=== PATIENT | male | born 1995 | race Caucasian/White ===

== ENCOUNTER 2017-04-25 14:26 | Emergency (ER) | payer BC ==
--- NOTE | 2017-04-25 15:38 | CT ---
Head CT Technique: Multiple axial sections through the brain were obtained. Intravenous contrast was not utilized. Comparison: No previous intracranial imaging. Findings: Ventricles along with basal cisterns and sulci over the convexities are within normal limits for the patient's age. No abnormal parenchymal densities are seen. No evidence of intracranial hemorrhage. No midline shift or mass effect is seen. Bone window settings were reviewed which shows no acute calvarial abnormality. Visualized sinuses are clear. Impression: 1. No acute intracranial abnormality is identified. Diagnostic code #1
--- NOTE | 2017-04-25 16:23 | EDM.PDOC ---
ED HPI GENERAL MEDICAL PROBLEM - General Chief Complaint: General Stated Complaint: DIZZY, SYNCOPE, BLOODY NOSE Time Seen by Provider: 04/25/17 14:34 Source of Information: Reports: Patient History Limitations: Reports: No Limitations - History of Present Illness INITIAL COMMENTS - FREE TEXT/NARRATIVE: The patient presents with a headache and syncopy. The patient got up to get ready for weight lifting a few days ago. He then got lightheaded and passed out. He hit his head when he fell. He has a headache since then. He denies neck pain. He has no chest pain or shortness of breath. He has no abdominal pain, nausea or vomiting. He has no numbness or weakness. He has no blurred vision or double vision. He has no medical problems. He has been having nose bleeds for a few weeks. He has a history of nose bleeds in the winter but not this much. He denies trauma to his nose. He has never passed out before. He has been eating and drinking okay and he has been getting enough rest. He also tells me he has some low back pain. This started the last 3 weeks of football. It comes and goes and he did go to a chiropractor. That did not help much. He has no bowel or bladder problems. He has no family history of hear problems. Onset: Sudden Duration: Day(s): (4) Quality: Reports: Ache Severity: Moderate Improves with: Reports: None Worsens with: Reports: None Context: Reports: Activity (He just got up to ) Associated Symptoms: Reports: Headaches. Denies: Confusion, Chest Pain, Cough, Fever/Chills, Nausea/Vomiting, Shortness of Breath head Pain Score (Numeric/FACES): 1 back Pain Score (Numeric/FACES): 5 - Related Data Allergies Allergy/AdvReac Type Severity Reaction Status Date / Time No Known Allergies Allergy Verified 04/25/17 14:36 Home Meds: Home Meds Cyclobenzaprine [Flexeril] 10 mg PO TID PRN #20 tab 04/25/17 [Rx] Methylphenidate [Ritalin LA] 30 mg PO DAILY 04/25/17 [History] Multivitamin [One Daily] 1 each PO DAILY 04/25/17 [History] Past Medical History - Past Health History Medical/Surgical History: Denies Medical/Surgical History Musculoskeletal History: Reports: Other (See Below) Other Musculoskeletal History: tendon repair to finger Psychiatric History: Reports: ADHD Social & Family History - Family History Family Medical History: Noncontributory - Tobacco Use Smoking Status *Q: Never Smoker Second Hand Smoke Exposure: No - Caffeine Use Caffeine Use: Reports: Coffee - Recreational Drug Use Recreational Drug Use: No ED ROS GENERAL - Review of Systems Review Of Systems: See Below Constitutional: Reports: No Symptoms HEENT: Reports: No Symptoms Respiratory: Reports: No Symptoms Cardiovascular: Reports: Syncope Endocrine: Reports: No Symptoms GI/Abdominal: Reports: No Symptoms : Reports: No Symptoms Musculoskeletal: Reports: Back Pain (Lower) Skin: Reports: No Symptoms Neurological: Reports: Headache ED EXAM, GENERAL - Physical Exam Exam: See Below Exam Limited By: No Limitations General Appearance: Alert, No Apparent Distress Ears: Normal External Exam Nose: Normal Inspection Head: Atraumatic, Normocephalic Neck: Normal Inspection Respiratory/Chest: No Respiratory Distress, Lungs Clear, Normal Breath Sounds Cardiovascular: Regular Rate, Rhythm, No Edema, No Murmur GI/Abdominal: Soft, Non-Tender, No Organomegaly, No Mass Back Exam: Other (Pain upon palpation to the mid low back) EKG INTERPRETATION EKG Date: 04/25/17 Time: 15:12 Rhythm: NSR Rate (Beats/Min): 63 [place]: Normal P-Wave: Present QRS: Normal ST-T: Normal QT: Normal Course - Vital Signs Last Recorded V/S: Last Vital Signs Temp 97.7 F 04/25/17 14:32 Pulse 65 04/25/17 14:32 Resp 18 04/25/17 14:32 BP 147/73 H 04/25/17 14:32 Pulse Ox 98 04/25/17 14:32 - Orders/Labs/Meds Orders: Active Orders 24 hr Category Date Time Status Cardiac Monitoring [RC] . DIRECTED Care 04/25/17 14:53 Active EKG Documentation Completion [RC] STAT Care 04/25/17 14:53 Active Lumbar Spine 2 or 3V [CR] Stat Exams 04/25/17 16:07 Taken Labs: Laboratory Tests 04/25/17 04/25/17 04/25/17 Range/Units 15:14 15:14 15:14 WBC 7.97 (4.23-9.07) K/mm3 RBC 5.60 (4.63-6.08) M/mm3 Hgb 16.8 (13.7-17.5) gm/L Hct 46.6 (40.1-51.0) % MCV 83.2 (79.0-92.2) fl MCH 30.0 (25.7-32.2) pg MCHC 36.1 H (32.2-35.5) g/dl RDW Std Deviation 41.5 (35.1-43.9) fL Plt Count 228 (163-337) K/mm3 MPV 10.0 (9.4-12.3) fl Neut % (Auto) 61.1 (34.0-67.9) % Lymph % (Auto) 27.9 (21.8-53.1) % [place] % (Auto) 8.8 (5.3-12.2) % Eos % (Auto) 1.4 (0.8-7.0) Baso % (Auto) 0.5 (0.1-1.2) % Neut # (Auto) 4.88 (1.78-5.38) K/mm3 Lymph # (Auto) 2.22 (1.32-3.57) K/mm3 [place] # (Auto) 0.70 (0.30-0.82) K/mm3 Eos # (Auto) 0.11 (0.04-0.54) K/mm3 Baso # (Auto) 0.04 (0.01-0.08) K/mm3 D-Dimer, Quantitative < 0.19 L (0.19-0.59) mg/L Sodium 143 (136-145) mEq/L Potassium 4.1 (3.5-5.1) mEq/L Chloride 104 (98-107) mEq/L Carbon Dioxide 28 (21-32) mEq/L Anion Gap 15.1 H (5-15) BUN 14 (7-18) mg/dL Creatinine 1.1 (0.7-1.3) mg/dL Est Cr Clr Drug Dosing 118.56 mL/min Estimated GFR (MDRD) > 60 (>60) mL/min BUN/Creatinine Ratio 12.7 L (14-18) Glucose 99 (74-106) mg/dL Calcium 9.0 (8.5-10.1) mg/dL Total Bilirubin 0.4 (0.2-1.0) mg/dL AST 21 (15-37) U/L ALT 38 (16-63) U/L Alkaline Phosphatase 77 (46-116) U/L Troponin I < 0.017 (0.00-0.056) ng/mL Total Protein 7.2 (6.4-8.2) g/dl Albumin 3.9 (3.4-5.0) g/dl Globulin 3.3 gm/dL Albumin/Globulin Ratio 1.2 (1-2) - Re-Assessments/Exams Free Text/Narrative Re-Assessment/Exam: 04/25/17 16:29 I ordered a EKG, CT of his head and labs. The CT of his head looks good. His EKG shows a NSR with no acute changes. His CBC and CMP look good. His troponin is negative. His lumbar spine x-ray looks good. I feel he needs an echo of his heart. I have him scheduled for Friday. I will also get him on a muscle relaxer and have him follow up with PT. Departure - Departure Time of Disposition: 16:35 Disposition: Home, Self-Care 01 Condition: Good Clinical Impression: Epistaxis Syncope Qualifiers: Syncope type: unspecified Qualified Code(s): R55 - Syncope and collapse Headache Qualifiers: Headache type: unspecified Headache chronicity pattern: acute headache Intractability: not intractable Qualified Code(s): R51 - Headache Low back pain Qualifiers: Chronicity: acute Back pain laterality: bilateral Sciatica presence: unspecified whether sciatica present Qualified Code(s): M54.5 - Low back pain - Discharge Information Prescriptions: Cyclobenzaprine [Flexeril] 10 mg PO TID PRN #20 tab PRN Reason: Pain Referrals: PCP,None [Primary Care Provider] - Ann Ricks [Physician] - 2 Weeks Additional Instructions: Drink plenty of fluids. I have ordered a ultrasound of your heart on Friday the 02 of May at 2pm. Please come at 1:30 to register. Take the flexeril for your back and follow up with physical therapy. Follow up with Dr Ricks in 2 weeks. Please return if you are worse. - My Orders Last 24 Hours: My Active Orders 04/25/17 14:53 Cardiac Monitoring [RC] . DIRECTED EKG Documentation Completion [RC] STAT 04/25/17 16:07 Lumbar Spine 2 or 3V [CR] Stat - Assessment/Plan Last 24 Hours: My Active Orders 04/25/17 14:53 Cardiac Monitoring [RC] . DIRECTED EKG Documentation Completion [RC] STAT 04/25/17 16:07 Lumbar Spine 2 or 3V [CR] Stat
--- NOTE | 2017-04-26 13:41 | CR ---
Lumbar spine: AP and lateral views of the lumbar spine were obtained. Comparison: No previous study. Vertebral body heights and disc spaces are maintained. Sacroiliac joints are unremarkable. Minimal scoliosis is seen. No subluxation or fracture is seen. Impression: 1. Minimal scoliosis. Nothing acute is identified. Diagnostic code #2
== END 2017-04-25 16:47 | disposition home or self-care (01) ==
LOC: JD.ED 14:26
DX: R55 Syncope and collapse (principal); R51 Headache; R04.0 Epistaxis; M54.5 Low back pain; F90.9 Attention-deficit hyperactivity disorder, unspecified type; Z79.899 Other long term (current) drug therapy
CPT/HCPCS: 36415; 70450; 70450-26; 72100; 72100-26; 80053; 84484; 85025; 85379; 93005; 93010; 99284; 99285-25